=== PATIENT | female | born 1935 | race Caucasian/White ===

== ENCOUNTER 2021-11-04 10:41 | Emergency (ER) | payer OTHER, MEDICARE ==
[2021-11-04] MEDS ORDERED: Lidocaine 1% (PF) 30 ML VIAL ONE (10:49)
[2021-11-04] MEDS ORDERED: Bacitracin 1 PK ONE (11:37)
== END 2021-11-04 11:50 | disposition home or self-care (01) ==
LOC: MADERS 10:41
DX: S01.81XA Laceration without foreign body of other part of head, initial encounter (principal); S60.221A Contusion of right hand, initial encounter; I48.91 Unspecified atrial fibrillation; W54.1XXA Struck by dog, initial encounter; Y93.K1 Activity, walking an animal; Z79.01 Long term (current) use of anticoagulants; Z79.899 Other long term (current) drug therapy
CPT/HCPCS: 12052; 70450; 72125; J2001

== ENCOUNTER 2023-09-13 11:37 | Emergency (ER) | payer OTHER, MEDICARE ==
[2023-09-13] MEDS ORDERED: HYDROcodone/Acetaminophen 5/325 mg Tablet ONE (12:16)
== END 2023-09-13 14:30 | disposition home or self-care (01) ==
LOC: MADERS 11:37
DX: S42.032A Displaced fracture of lateral end of left clavicle, initial encounter for closed fracture (principal); S50.11XA Contusion of right forearm, initial encounter; I48.91 Unspecified atrial fibrillation; V43.62XA Car passenger injured in collision with other type car in traffic accident, initial encounter; Z79.01 Long term (current) use of anticoagulants; Z79.899 Other long term (current) drug therapy
CPT/HCPCS: 36416